=== PATIENT | male | born 1965 | race Caucasian/White ===

== ENCOUNTER 2019-06-20 10:07 | Emergency (ER) | payer OTHER ==
[2019-06-20] MEDS ORDERED: HYDROCODONE/ACETAMINOPHEN 5-325 MG TABLET PO ONE (10:34)
--- NOTE | 2019-06-20 10:40 | ER Document Report ---
HPI - HPI Patient complains to provider of: knee/arm pain Time Seen by Provider: 06/20/19 10:25 Onset: Other - 6 weeks Onset/Duration: Persistent Quality of pain: Achy Pain Level: 4 Context: Patient [place] hyperextended his left elbow. Patient states he has had pain since then. Patient states that he also fell 2 weeks ago when [place] and landed on his left elbow and forearm as well as injuring the left knee. Patient states that his primary doctor cannot get him in in a timely manner which prompted his visit today. Patient also states that he has had some drainage from the umbilical area but none recently. Patient denies any significant tenderness to the abdomen, no nausea or vomiting. No fever. Associated Symptoms: Other - Left elbow, left forearm, left knee pain. denies: Fever, Nausea Exacerbated by: Movement Relieved by: Denies Similar symptoms previously: No Recently seen / treated by doctor: No - ROS ROS below otherwise negative: Yes Systems Reviewed and Negative: Yes All other systems reviewed and negative - CONSTITUTIONAL Constitutional: DENIES: Fever, Chills - NEURO Neurology: DENIES: Weakness - MUSCULOSKELETAL Musculoskeletal: REPORTS: Extremity pain - Left elbow, left forearm Notes: Left knee pain - DERM Skin Color: Normal, [place] Skin Problems: None Past Medical History - General Information source: Patient - Social History Smoking Status: Current Every Day Smoker Frequency of alcohol use: None Drug Abuse: None Lives with: Family Family History: Reviewed & Not Pertinent Patient has suicidal ideation: No Patient has homicidal ideation: No - Medical History Medical History: Negative Past Surgical History: Reports: Hx Orthopedic Surgery Vertical Provider Document - CONSTITUTIONAL Agree With Documented VS: Yes Exam Limitations: No Limitations General Appearance: WD/WN, No Apparent Distress - HEENT HEENT: Atraumatic, Normocephalic - NECK Neck: Normal Inspection - RESPIRATORY Respiratory: No Respiratory Distress - CARDIOVASCULAR Pulses: Normal: Radial, Posterior tibial - MUSCULOSKELETAL/EXTREMETIES Musculoskeletal/Extremeties: MAEW, Tender - Proximal left forearm tenderness with overlying area of ecchymosis, left elbow swelling over bursa, normal skin color and temperature overlying the left elbow. Patient with full range of motion to left elbow joint. Left medial knee tenderness, no joint effusion, no laxity with varus or valgus maneuvers., Edema - Over the left elbow bursa - NEURO Level of Consciousness: Awake, Alert, Appropriate Motor/Sensory: No Motor Deficit - DERM Integumentary: Warm, Dry, No Rash Course - Re-evaluation Re-evalutation: 06/20/19 12:08 Patient without any acute findings on x-ray, will immobilize and refer to orthopedics for further evaluation. Good return precautions discussed with patient - Vital Signs Vital signs: Temp Pulse Resp BP Pulse Ox 97.8 F 94 18 110/74 97 06/20/19 10:12 06/20/19 10:12 06/20/19 10:12 06/20/19 10:12 06/20/19 10:12 - Diagnostic Test Radiology reviewed: Image reviewed, Reports reviewed Procedures - Immobilization Left Elbow Pre-Proc Neuro Vasc Exam: Normal Immobilizer type: Lucian wrap Performed by: PCT Post-Proc Neuro Vasc Exam: Normal Alignment checked and good: Yes Left Knee Pre-Proc Neuro Vasc Exam: Normal Immobilizer type: Lucian wrap Performed by: PCT Post-Proc Neuro Vasc Exam: Normal Alignment checked and good: Yes Discharge - Discharge Clinical Impression: Arthritis, Left forearm pain Left knee pain Qualifiers: Chronicity: chronic Qualified Code(s): M25.562 - Pain in left knee Bursitis of left elbow Qualifiers: Elbow bursitis location: olecranon bursitis Qualified Code(s): M70.22 - Olecranon bursitis, left elbow Condition: Stable Disposition: HOME, SELF-CARE Instructions: Lucian Wrap ([facility]), Arthritis ([facility]), Olecranon Bursitis ([facility]), Sprained Knee ([facility]) Additional Instructions: Return immediately for any new or worsening symptoms Followup with your primary care provider, call tomorrow to make a followup appointment Follow-up with orthopedics for further evaluation, call today to make a follow- up appointment Prescriptions: Mupirocin [Bactroban 2% Ointment 22 gm] 1 applic TP TID #22 gm Naproxen [Naprosyn 250 Nmg Tablet] 1 tab PO BID #14 tablet Tramadol HCl [Ultram 50 mg Tablet] 50 mg PO ASDIR PRN #12 tablet PRN Reason: Forms: Smoking Cessation Education Referrals: [facility] [Provider Group] - Follow up as needed
--- NOTE | 2019-06-20 11:28 | RADIOLOGY REPORT (SQ) ---
EXAM DESCRIPTION: FOREARM LEFT COMPLETED DATE/TIME: 06/20/2019 11:02 am REASON FOR STUDY: fall COMPARISON: None. NUMBER OF VIEWS: Two views. TECHNIQUE: Two radiographic images acquired of the left forearm, including elbow and wrist in at [address] one projection. LIMITATIONS: None. FINDINGS: MINERALIZATION: Normal. BONES: No acute fracture. No worrisome bone lesions. SOFT TISSUES: Soft tissue swelling posterior to the olecranon. OTHER: No other significant finding. IMPRESSION: SOFT TISSUE SWELLING. NO BONY FINDINGS. TECHNICAL DOCUMENTATION: JOB ID: [id number] [employer]- All Rights Reserved Reading location - IP/workstation name: [email or web address]
--- NOTE | 2019-06-20 11:29 | RADIOLOGY REPORT (SQ) ---
EXAM DESCRIPTION: ELBOW LEFT OVER 2 VIEWS COMPLETED DATE/TIME: 06/20/2019 11:02 am REASON FOR STUDY: fall, L knee/elbow pain COMPARISON: None. NUMBER OF VIEWS: Four views. TECHNIQUE: AP, lateral, and both oblique radiographic images acquired of the left elbow. LIMITATIONS: None. FINDINGS: MINERALIZATION: Normal. BONES: No acute fracture or dislocation. No worrisome bone lesions. JOINT: No effusion. SOFT TISSUES: Posterior soft tissue swelling. No foreign body. OTHER: No other significant finding. IMPRESSION: POSTERIOR SOFT TISSUE SWELLING. NO SIGNIFICANT BONY FINDINGS. TECHNICAL DOCUMENTATION: JOB ID: [id number] [employer]- All Rights Reserved Reading location - IP/workstation name: [email or web address]
--- NOTE | 2019-06-20 11:30 | RADIOLOGY REPORT (SQ) ---
EXAM DESCRIPTION: KNEE LEFT 4 VIEW COMPLETED DATE/TIME: 06/20/2019 11:02 am REASON FOR STUDY: fall, L knee/elbow pain COMPARISON: None. NUMBER OF VIEWS: Four views. TECHNIQUE: AP, lateral, and both oblique radiographic images acquired of the left knee. LIMITATIONS: None. FINDINGS: MINERALIZATION: Normal. BONES: No acute fracture or dislocation. Prominent osteophytes in the medial and lateral femoral com partment and small osteophytes on the posterior patella. No worrisome bone lesions. JOINT: No effusion. SOFT TISSUES: No soft tissue swelling. No radio-opaque foreign body. OTHER: No other significant finding. IMPRESSION: CHRONIC DEGENERATIVE CHANGES. NO RADIOGRAPHIC EVIDENCE OF ACUTE INJURY. TECHNICAL DOCUMENTATION: JOB ID: [id number] [employer]- All Rights Reserved Reading location - IP/workstation name: [email or web address]
[2019-06-20 11:57] VITALS: BP 122/78
== END 2019-06-20 12:21 | disposition home or self-care (01) ==
LOC: ER 10:07
DX: M70.22 Olecranon bursitis, left elbow (principal); X50.0XXA Overexertion from strenuous movement or load, initial encounter; Y93.89 Activity, other specified; Y92.89 Other specified places as the place of occurrence of the external cause; S50.12XA Contusion of left forearm, initial encounter; M25.562 Pain in left knee; M79.631 Pain in right forearm; W19.XXXA Unspecified fall, initial encounter; M47.9 Spondylosis, unspecified; F17.200 Nicotine dependence, unspecified, uncomplicated
CPT/HCPCS: 99283

== ENCOUNTER → 2019-10-12 | Day surgery (SDC) | payer OTHER ==
--- NOTE | 2019-10-12 14:56 | RADIOLOGY REPORT (SQ) ---
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 A ti meout was performed to confirm the procedure and patient's identity. The skin of the neck was preppe d and draped in sterile fashion and 5 cc of 1% lidocaine was administered for local anesthesia. Unde r sonographic guidance, fine needle aspiration biopsy was performed of the mass in the right lobe of the thyroid. A total of 3 passes was performed. Additional sonographic evaluation of the left-sided nodule demonstrated a 1.8 cm mixed cystic and ondina id hypoechoic nodule with lobulated contour (TI rads 4). Decision was made to perform biopsy of this nodule as well. Additional 5 cc of 1% lidocaine was administered for local sedation. Under sonogra [facility] guidance, fine needle aspiration biopsy was performed of the left lower pole thyroid nodule. A total 4 passes was performed. On-site pathology deemed the specimens adequate. Hemostasis was obtained with direct manual compression. There were no immediate complications. LIMITATIONS: None. FINDINGS: PATHOLOGY: Pending. IMPRESSION: 1. ULTRASOUND-GUIDED BIOPSY PERFORMED OF THE RIGHT LOBE THYROID MASS. 2. ULTRASOUND-GUIDED BIOPSY PERFORMED OF THE LEFT LOWER POLE THYROID NODULE. PATHOLOGY PENDING AT THE TIME OF DICTATION. COMMENT: Patient medication list reviewed: Yes- Quality ID# [id number]:Eligible professional attests to doc umenting in the medical record they obtained, updated, or reviewed the patient's current medications. TECHNICAL DOCUMENTATION: JOB ID: [id number] [employer]- All Rights Reserved Reading location - IP/workstation name: [email or web address]
== END ==
LOC: RAD 12:49
PROVIDERS: ATTEND Internal Medicine
DX: E04.1 Nontoxic single thyroid nodule (principal)
CPT/HCPCS: 60100; 88173